=== PATIENT | female | born 1970 | race Caucasian/White ===

== ENCOUNTER 2021-07-01 17:46 | Emergency (ER) | payer MEDICAID ==
[~2021-07-01] VITALS: Ht 152.4 cm; Wt 90.3 kg
[2021-07-01 17:55] VITALS: BP 156/87
[2021-07-01] MEDS ORDERED: HYDROcodone/APAP 5/325 MG 1 TAB TAB PO ONE (18:40)
[2021-07-01] MEDS ORDERED: cephALEXin 500 MG CAP PO ONE (18:40)
[2021-07-01] MEDS ORDERED: SULFAMETH/TRIMETH DS 800/160MG 1 TAB PO ONE (18:40)
--- NOTE | 2021-07-01 18:40 | NUR ---
50YO F C/O ABSCESS, LEFT ARM X 3 DAYS. +PAIN 9/10, -FEVER. UPON ASSESSMENT PT HAS L ARM ABCESS THAT IS PINK SURROUNDING ABCESS. PT DENIES ANY RADIAITNG PAIN. PT TAKES NORCO FOR PAIN PRESCRIBED BY MD. LAST TAKEN LAST NIGHT. PMH: NONE MEDS:NONE NKA
--- NOTE | 2021-07-01 18:40 | NUR ---
DR. DIAZ BEDSIDE EVALUATING PT
--- NOTE | 2021-07-01 18:45 | NUR ---
XRAY BEDSIDE WITH PT
--- NOTE | 2021-07-01 19:13 | NUR ---
Pt report given to DEBRA PIÑA. Transfer of care at this time.
--- NOTE | 2021-07-01 20:50 | NUR ---
PT. SITTING ON BED, BREATHING UNLABORED. NO DISTRESS NOTED. AWAITING DISPOSITION.
[2021-07-01] MEDS ORDERED: LIDOCAINE MPF 1% 10 ML ONE (21:34)
[2021-07-01] MEDS ORDERED: LIDOCAINE MPF 1% 10 MG/ML VIAL INJ ONE (21:35)
--- NOTE | 2021-07-01 22:00 | NUR ---
WOUND CULTURE OBTAINED. GIVEN TO ERROL TORO TO WALK TO LAB
[2021-07-01] MEDS ORDERED: CEPH-588 PO (22:16)
[2021-07-01] MEDS ORDERED: SULF-59 PO (22:16)
[2021-07-01] MEDS ORDERED: NAPR-54 PO (22:17)
[2021-07-01 22:23] VITALS: BP 156/87
--- NOTE | 2021-07-01 22:23 | NUR ---
Patient discharged with v/s stable. Written and verbal after care instructions given and explained. Patient alert, oriented and verbalized understanding of instructions. Ambulatory with steady gait. All questions addressed prior to discharge. ID band removed. Patient advised to follow up with PMD. Rx of KEFLEX, NAPROSYN, AND BACTRIM given. Patient educated on indication of medication including possible reaction and side effects. Opportunity to ask questions provided and answered.
== END 2021-07-01 22:23 | disposition home or self-care (01) ==
LOC: MED 17:46
DX: L02.414 Cutaneous abscess of left upper limb (principal)
CPT/HCPCS: 10060; 73090; 87070; 99284; J2001; Q0092; 87075; 87205

== ENCOUNTER 2021-07-04 08:07 | Emergency (ER) | payer MEDICAID ==
[~2021-07-04] VITALS: Ht 152.4 cm; Wt 86.2 kg
[~2021-07-04 08:07] MED LIST: CEPH-588 PO; NAPR-54 PO; SULF-59 PO
--- NOTE | 2021-07-04 08:18 | NUR ---
PT AMBULATED TO ER BED 3 WITH A STEADY GAIT.
[2021-07-04 08:20] VITALS: BP 149/75
--- NOTE | 2021-07-04 08:27 | NUR ---
50 Y/O FEMALE HERE FOR RECHECK ON LEFT FA S/P HAVING CYST ASPIRATED X3DAYS AGO. PT STATES SHE HAS A HX OF HAVING CYST AND FELL X6DAYS AND HEARD "A POP", PT CAME TO ER PRESCRIBED BACTRIM, KEFLEX, AND NAPROXEN. PT STATES PAIN TODAY 8/10. DENIES N/V, DENIES FEVER/CHILLS. DENIES PMH NKA
[2021-07-04 09:55] VITALS: BP 149/75
--- NOTE | 2021-07-04 09:55 | NUR ---
Patient discharged with v/s stable. Written and verbal after care instructions given and explained. Patient verbalized understanding. Ambulatory with steady gait. All questions addressed prior to discharge. Advised to follow up with PMD.
== END 2021-07-04 09:55 | disposition home or self-care (01) ==
LOC: MED 08:07
DX: L02.414 Cutaneous abscess of left upper limb (principal); Z79.899 Other long term (current) drug therapy; Z98.890 Other specified postprocedural states
CPT/HCPCS: 99283